=== PATIENT | female | born 1935 | race Caucasian/White ===

== ENCOUNTER 2025-02-19 09:29 | Emergency (ER) | payer MEDICARE, SELFPAY ==
[2025-02-19] VITALS (7 sets, daily range): BP systolic 119–151; BP diastolic 63–78; PULSE 65–82; RESP 15–20; TEMP 36.7–36.8; O2SAT 95–98; BMI 23.0
--- NOTE | 2025-02-19 09:24 | ECG_ITS ---
APPROVED REPORT Exam: Resting ECG HR:76 bpm ECG Measurements Heart Rate 76 AXES RI 142 P 70 QRSd 105 QRS -60 QT 390 T 70 QTc 420 Conclusion SINUS RHYTHM LEFT ANTERIOR FASCICULAR BLOCK [QRS AXIS <= -45, QR IN I, RS IN II] No STEMI Electronically signed by : LUIS ALFREDO ANDERSON, 02/19/2025 14:54:19
--- NOTE | 2025-02-19 09:30 | PC.NURSE ---
dr fowler at bedside
--- NOTE | 2025-02-19 09:33 | XR_ITS ---
FINAL REPORT CLINICAL HISTORY: chest pain FINDINGS: PA and lateral views of the chest are obtained. There is no prior exam for comparison. The cardiac and mediastinal silhouettes are within normal limits. There are chronic increased interstitial markings. Otherwise, the lungs are clear. There is no pleural effusion, pneumothorax, or acute osseous abnormality. IMPRESSION: Chronic changes without radiographic evidence of acute cardiac or pulmonary disease. Reviewed, Interpreted and Dictated by Elli Houston MD Transcribed by Nay Haynes Authenticated and [facility]
--- NOTE | 2025-02-19 09:38 | HMH.EDGENADL ---
Discharge Plan Disposition Patient Disposition: Home, Self-Care Condition: Good Prescriptions Prescriptions: New omeprazole 40 mg capsule,delayed release(DR/EC) 40 mg PO DAILY Qty: 30 1RF Referrals Follow up/Referrals: David Casas MD [Staff Physician] - See instructions Provider,MD Liz [Primary Care Provider] - See instructions Rush Lockhart MD [Staff Physician] - See instructions Activity Restrictions/Add. Instructions Additional Instructions/Restrictions: You were evaluated in the emergency department today. Today, your workup is reassuring. This could be related to acid reflux, so I am prescribing a medication to treat this. Please follow-up very closely with cardiology as well as with your primary care provider. Return to the emergency department for new or worsening symptoms. Clinical Impressions Clinical Impression: Chest pain Instructions Patient Instructions: DI for Atypical Chest Pain, DI for Chest Pain Print Language Print Language: Filipino Discharge ED Provider: Maribell Sheth General Adult HPI General Chief complaint: Chest Pain Stated complaint: chest pain Time Seen by Provider: 02/19/25 09:33 History of Present Illness HPI narrative: This patient is an 89-year-old female with a history of CAD status post stenting, lymphoma, hyperlipidemia, and hypertension presenting to the emergency department for evaluation with concern for chest pain. History is obtained with the help of a Filipino ice hockey coach. Patient was upstairs with her who is currently admitted, and she asked physical therapy to check her blood pressure because she was worried it may be off with burning that she was having in her chest. She notes that last night she started getting sick with a cold, having some cough and congestion, and then she started having a burning feeling in her esophagus. She took Tylenol for this around 2:00 in the morning but it did not really help very much. She denies any notable abdominal pain, stating that she did have some constipation last week but it has improved with MiraLAX that was prescribed by her doctor. Her other medications include rosuvastatin and amlodipine. She notes she has had issues with her blood pressures going up and down in the past. Related Data Previous Rx's ?Medication ?Instructions ?Recorded omeprazole 40 mg capsule,delayed 40 mg PO DAILY #30 caps 02/19/25 release Allergies Allergy/AdvReac Type Severity Reaction Status Date / Time ciprofloxacin (From Cipro) Allergy Hives Verified 02/19/25 09:51 Sulfa (Sulfonamide Allergy Hives Verified 02/19/25 09:51 Antibiotics) [facility] Disclaimer: The information contained in this section may have been updated after the patient was seen, as this information can be updated by other users. Social History Smoking Status: Never smoker alcohol intake: never current occupational status: retired Travel in the last 8 weeks?: None ROS Obtained: Yes All systems reviewed & no additional complaints except as documented Physical Exam General General appearance: alert and in no apparent distress Head Head exam: atraumatic and normocephalic Eye Eye exam: Present normal appearance, PERRL and EOMI ENT ENT exam: Present normal exam, normal oropharynx, mucous membranes moist and normal external ear exam Neck Neck exam: Present normal inspection, full ROM and trachea midline; Absent tenderness Chest Chest inspection: Present normal inspection and symmetric chest wall rise; Absent tenderness Respiratory Respiratory exam: Present normal lung sounds bilaterally; Absent respiratory distress, wheezes, stridor or accessory muscle use Cardiovascular Cardiovascular exam: Present regular rate and normal rhythm Abdominal Exam Abdominal exam: Present soft; Absent distention, tenderness or guarding Extremities Exam Extremities exam: Present normal inspection, full ROM and normal capillary refill; Absent tenderness or edema Back Exam Back exam: Present normal inspection and full ROM; Absent tenderness Neurological Exam Neurological exam: Present alert, oriented X3, CN II-XII intact and normal gait; Absent motor sensory deficit Psychiatric Psychiatric exam: Present normal affect and normal mood Skin Skin exam: Present warm and dry Medical Decision Making Medical Records Medical records reviewed: Yes I reviewed the patient's medical records. Screening: Per USPSTF and CDC recommendations, given the prevalence of disease in our region, it is our hospital?s policy to screen for HIV and viral Hepatitis for all patients aged 18 and over and those with ongoing risk factors. Sree Inquiry Pt receiving controlled substance: No Vital Signs: 02/19/25 09:43 02/19/25 09:49 02/19/25 11:00 Temperature 98.2 F Temperature Source Oral Pulse Rate 82 76 Pulse Rate [Left Radial] 82 Respiratory Rate 20 20 Blood Pressure 127/69 Blood Pressure [Right Arm] 151/78 H Blood Pressure Mean [Right Arm] 102 Blood Pressure Source Blood Pressure Position 02 Sat by Pulse Oximetry 96 95 Oxygen Delivery Method Room Air Room Air 02/19/25 11:30 02/19/25 12:00 02/19/25 12:30 Temperature Temperature Source Pulse Rate 70 68 70 Pulse Rate [Left Radial] Respiratory Rate 15 16 16 Blood Pressure 119/73 123/63 122/66 Blood Pressure [Right Arm] Blood Pressure Mean [Right Arm] Blood Pressure Source Blood Pressure Position 02 Sat by Pulse Oximetry 97 97 97 Oxygen Delivery Method Room Air Room Air Room Air 02/19/25 13:09 Temperature 98.1 F Temperature Source Oral Pulse Rate 65 Pulse Rate [Left Radial] Respiratory Rate 18 Blood Pressure 139/70 Blood Pressure [Right Arm] Blood Pressure Mean [Right Arm] Blood Pressure Source Automatic Cuff Blood Pressure Position Sitting 02 Sat by Pulse Oximetry Oxygen Delivery Method Room Air Lab Data Lab results reviewed: Yes I reviewed the patient's lab results. Lab Results 02/19/25 09:47: WBC 5.0, RBC 3.95 L, Hgb 13.0, Hct 38.1, MCV 96.5, MCH 32.9 H, MCHC 34.1, RDW 12.5, Plt Count 187, MPV 9.7, Neut % (Auto) 57.6, Lymph % (Auto) 24.7, [facility] % (Auto) 16.5 H, Eos % (Auto) 0.6, Baso % (Auto) 0.4, Neut # (Auto) 2.9, Lymph # (Auto) 1.2, [facility] [place] [facility] # (Auto) 0.8, Eos # (Auto) 0.0, Baso # (Auto) 0.0, D-Dimer 0.62 H, Sodium 136, Potassium 3.5, Chloride 102, Carbon Dioxide 32 H, Anion Gap 5.5, BUN 15, Creatinine 0.60, Estimated Creat Clear 32, Estimated GFR 95, Est GFR ( Amer) 114, Glucose 134 H, Calcium 9.7, Total Bilirubin 0.4, AST 35, ALT 34, Alkaline Phosphatase 68, Troponin I < 0.01, Total Protein 6.9, Albumin 4.4, Globulin 2.5, Albumin/Globulin Ratio 1.8, Lipase 67 02/19/25 10:15: SARS-CoV-2 (PCR) Not detected, Influenza A Untype (PCR) Not detected, Influenza Type B (PCR) Not detected 02/19/25 11:30: Troponin I < 0.01 02/19/25 09:47 02/19/25 09:47 Orders (Tests/Meds): ED MEDICATIONS Discontinued Medications Generic Name Dose Route Start Last Admin Trade Name Stephanie PRN Reason Stop Dose Admin Aspirin 324 mg 02/19/25 09:33 02/19/25 10:02 Aspirin 81mg Chewable Tablet PO 02/19/25 09:34 324 mg ONCE ONE Administration Belladonna Alkaloids 60 ml 02/19/25 09:33 02/19/25 10:02 Belladonna Alkaloids 60 Ml Ml PO 02/19/25 09:34 60 ml ONCE ONE Administration ORDERS Category Date Time Status CXR 2 view (NOT portable) [XR chest 2V] Stat Exams 02/19/25 09:33 Completed Complete Blood Count Auto Diff Stat Lab 02/19/25 09:47 Completed Comprehensive Metabolic Panel Stat Lab 02/19/25 09:47 Completed D-Dimer Stat Lab 02/19/25 09:47 Completed Lipase Stat Lab 02/19/25 09:47 Completed Rapid PCR Covid and Flu A/B Stat Lab 02/19/25 10:15 Completed Trop I [Troponin I] Stat Lab 02/19/25 09:47 Completed Troponin I Q3H Lab 02/19/25 11:30 Completed ECG Data Tracing #1: I reviewed this ECG and interpreted as documented below: Normal sinus rhythm with a ventricular rate of 76 bpm. Left anterior fascicular block. No acute ST changes concerning for ischemia ECG initial impression date: 02/19/25 ECG initial impression time: 09:25 Medical Decision Narrative: In summary, this patient is a 89-year-old female presenting to the Emergency Department for evaluation of burning in her esophagus/chest pain. Differential diagnoses considered include but are not limited to GERD, esophagitis, ACS, pancreatitis, pneumonia. Ruling out the most morbid conditions drove assessment. It should be noted patient's history includes CAD status post tenting, hypertension, hyperlipidemia which may or may not be at goal therapy. This complicates all aspects of care by increasing patient's risk for morbidity. On exam, the patient is lying in bed in no acute distress. She is mildly hypertensive with systolics in the 150s but otherwise vitals are reassuring on cardiac telemetry. EKG obtained is reassuring. Cardiopulmonary exam is reassuring, and she has no abdominal tenderness noted on exam. Cannot use PERC criteria to exclude PE as a cause given her age. Workup included CBC, CMP, lipase, troponin, D-dimer, chest x-ray in addition to EKG. She was given oral aspirin and GI cocktail for symptomatic improvement. I independently interpreted chest x-ray prior to the radiologist read and noted no focal consolidation or pneumothorax. Please see their read for final interpretation. Labs were obtained that demonstrated reassuring CBC with no significant leukocytosis or anemia, chemistry is reassuring with negative troponin and normal kidney function. D-dimer is negative per age-adjusted D-dimer. On reassessment, patient had great improvement after administration of GI cocktail. This significantly improved her symptoms that she states she is feeling better. Vitals are normal on reassessment. Exam remains reassuring. Second troponin was obtained and was negative. Given this, I feel the patient is appropriate for discharge home with prescription for PPI to see if this could be related to esophageal reflux and instructions for close follow-up with primary care provider as well as with cardiology. Strict return precautions were given at time of discharge with the help of a Filipino ice hockey coach. Critical Care Critical Care Time Critical Care Time: No
--- NOTE | 2025-02-19 09:39 | PC.NURSE ---
pepe campbell at bs using ipad for [place] translater
--- NOTE | 2025-02-19 09:48 | PC.NURSE ---
pt going to xray via wheelchair
--- NOTE | 2025-02-19 09:52 | PC.NURSE ---
pt arrived back to room from xray
[2025-02-19 09:58] LABS: Basophils % 0.4 % (0.1-2.0); Eosinophils % 0.6 % (0.1-12.0); Hematocrit 38.1 % (37.0-47.0); Immature Granulocytes # 0.01 10^3uL; Immature Granulocytes % 0.2 %; Lymphocytes # 1.2 K/mm3 (0.7-4.5); Lymphocytes % 24.7 % (10-50); Mean Corpuscular HGB Conc 34.1 g/dL (31.8-35.4); Mean Corpuscular Hemoglobin 32.9 pg (27.0-31.2); Mean Corpuscular Volume 96.5 fl (81-99); Mean Platelet Volume 9.7 fl (7.4-10.4); Monocytes # 0.8 K/mm3 (0.1-1.0); Monocytes % 16.5 % (1.7-9.3); Neutrophils # 2.9 K/mm3 (1.8-7.8); Neutrophils % 57.6 % (37.0-80.0); Nucleated Red Blood Cells # 0 10^3/uL; Nucleated Red Blood Cells % 0 %; Platelet Count 187 K/mm3 (142-424); Red Blood Count 3.95 M/mm3 (4.20-5.40); Red Cell Distribution Width 12.5 % (11.5-17.5); Red Cell Distribution Width-SD 44.6 fL
[2025-02-19] MEDS: BELLADONNA ALKALOIDS 60 ML ML PO (10:02)
[2025-02-19] MEDS: ASPIRIN 81MG CHEWABLE TABLET 324 MG PO (10:02)
[2025-02-19 10:13] LABS: Alanine Aminotransferase 34 U/L (12-78); Albumin Level 4.4 g/dl (3.5-5.0); Albumin/Globulin Ratio 1.8 (1.1-1.8); Alkaline Phosphatase 68 U/L (38-126); Anion Gap 5.5 mEq/L (5-15); Aspartate Amino Transferase 35 U/L (14-36); Bilirubin,Total 0.4 mg/dl (0.2-1.3); Blood Urea Nitrogen 15 mg/dl (7-17); Calcium 9.7 mg/dl (8.4-10.2); Carbon Dioxide 32 mmol/L (22.0-30.0); Chloride 102 mmol/L (98-107); Creatinine Clearance Estimated 32 mL/min (50-200); Estimated Glomerular Filt Rate 95 ml/min (>60); GFR (African American) 114 ML/MIN (>60); Globulin 2.5 g/dL (1.3-3.2); Glucose 134 mg/dl (74-100); Lipase 67 U/L (23-300); Potassium 3.5 mmoL/L (3.5-5.1); Sodium 136 mmol/L (136-145); Total Protein,Serum 6.9 g/dl (6.3-8.2)
[2025-02-19 10:19] LABS: D-Dimer 0.62 ug/mL (0.0-0.5)
[2025-02-19 10:20] LABS: Coronavirus 19, PCR Not Detected (NotDetected); Influenza A, PCR Not Detected (NotDetected); Influenza B, PCR Not Detected (NotDetected)
[2025-02-19 10:38] LABS: Troponin I < 0.01 ng/ml (0.00-0.034)
--- NOTE | 2025-02-19 11:31 | PC.NURSE ---
second chely collected and sent
--- NOTE | 2025-02-19 11:52 | PC.NURSE ---
This RN rounds with patient. Translation line used for assessment. No acute distress noted on assessment. Pt denies any needs at this time
[2025-02-19 12:16] LABS: Troponin I < 0.01 ng/ml (0.00-0.034)
--- NOTE | 2025-02-19 12:36 | PC.NURSE ---
dr fowler at bedside to update pt on poc with ipad photograph enlarger
--- NOTE | 2025-02-19 13:08 | PC.NURSE ---
Interventional Physician used for discharge instructions. IV removed. Pt verbalizes understanding of plan to discharge patient up to room 208 to be with her who is admitted
== END 2025-02-19 13:10 | disposition home or self-care (01) ==
PROVIDERS: Emergency Provider Emergency Medicine
DX: R07.89 Other chest pain (principal); I44.4 Left anterior fascicular block
CPT/HCPCS: 71046; 80053; 83690; 84484; 85025; 85378; 87636; 93005; 99284